=== PATIENT | female | born 2005 | race Caucasian/White ===

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

== ENCOUNTER → 2025-10-12 | Outpatient (CLI) | payer BC ==
[~2025-10-12] MED LIST changes: +COLA100C5 PO; -LR 1,000 ML IV SCH; +PERC5TAB12 PO
[2025-10-12 13:04] LABS: BASO # 0.1 10^3/uL (0.0-0.2); BASO % 0.8 % (0.0-1.0); EOS # 0.5 10^3/uL (0.0-0.5); EOS % 6.6 % (0.0-3.0); LYMPH # 2.6 10^3/uL (1.5-5.0); LYMPH % 35.7 % (24.0-44.0); MONO # 0.5 10^3/uL (0.0-0.8); MONO % 6.4 % (2.0-8.0); NEUTROPHILS # 3.7 10^3/uL (1.5-8.5); NEUTROPHILS % 50.2 % (36.0-66.0); PLATELET COUNT, AUTOMATED 271 10^3/uL (150-450)
[2025-10-12 13:07] LABS: INR 0.95
== END ==
LOC: M PLALAB 11:45
PROVIDERS: ATTEND Nurse Practitioner Family
DX: R23.3 Spontaneous ecchymoses (principal)